=== PATIENT | female | born 2000 | race Hispanic/Latino ===

== ENCOUNTER 2021-09-19 11:32 | Outpatient (CLI) | payer MEDICAID ==
[2021-09-19] MEDS ORDERED: LACTATED RINGERS 1,000 ML IV ONE (12:10)
[2021-09-19 12:46] LABS: Bacteria,Urine 1+ /HPF (Negative); Mucus,Urine FEW /HPF
[2021-09-19 13:03] LABS: Bilirubin,Urine Negative (Negative); Blood,Urine Negative (Negative); Color,Urine Straw (Yellow); PH,Urine 5.5 (5.0-7.0); Urobilinogen,Urine < 2.0 mg/dL (<2.0)
[2021-09-19 13:56] VITALS: BP 116/77
--- NOTE | 2021-09-19 14:33 | Ultrasound Report ---
US OB BPP wo non-stress, US OB limited INDICATION / CLINICAL INFORMATION: well being. COMPARISON: None available. FINDINGS: BREATHING MOVEMENT = 2 GROSS BODY MOVEMENT = 2 TONE = 2 QUALITATIVE AMNIOTIC FLUID VOLUME = 2 TOTAL BIOPHYSICAL SCORE = 8/8 AMNIOTIC FLUID INDEX (cm) = 7.0 (normal = 7-24 cm) PRESENTATION: Cephalic. HEART RATE (beats per minute): 156 IMPRESSION: Single live intrauterine in cephalic presentation. 1. biophysical profile = 8/8 2. Amniotic fluid volume measures 7 cm, which is at the lower limits of normal. Signer Name: Terence Ron MD Signed: 09/19/2021 2:29 PM Workstation Name: [id number]
== END 2021-09-19 14:12 | disposition home or self-care (01) ==
LOC: TRG 11:32 → APU 11:34 → TRG 14:12
PROVIDERS: ATTEND Obstetrics & Gynecology
DX: O42.913 Preterm premature rupture of membranes, unspecified as to length of time between rupture and onset of labor, third trimester (principal); Z3A.35 35 weeks gestation of pregnancy
CPT/HCPCS: 36415; 59025; 76815; 76819; 81001; 84112